=== PATIENT | male | born 1995 | race Caucasian/White ===

== ENCOUNTER 2017-09-01 12:51 | Emergency (ER) | END 2017-09-01 16:22 | disposition home or self-care (01) ==

== ENCOUNTER 2019-01-23 20:21 | Emergency (ER) | payer OTHER ==
[~2019-01-23] VITALS: Ht 172.7 cm; Wt 81.0 kg
[~2019-01-23 20:21] MED LIST: ACET325T33 PO; FAMO-96 PO
[2019-01-23 20:32] VITALS: Ht 172.7 cm; Wt 81.0 kg
[2019-01-23] MEDS ORDERED: SOD CHLORIDE 0.9% 1,000 ML IV STA (22:09)
[2019-01-23] MEDS ORDERED: KETOROLAC 15 MG INJ IV STA (22:09)
[2019-01-24] MEDS ORDERED: SOD CHLORIDE 0.9% 1,000 ML IV ONE (01:30)
[2019-01-24] MEDS ORDERED: IOHEXOL 300MG/ML 150 ML BTL ONE (02:34)
[2019-01-24] MEDS ORDERED: SOD CHLORIDE 0.9% 100 ML ONE (02:34)
[2019-01-24] MEDS ORDERED: IBUP-1542 PO (03:22)
[2019-01-24] MEDS ORDERED: ACET500C5 PO (03:22)
--- NOTE | 2019-01-24 03:34 | ERD ---
ER Documentation Chief Complaint Chief Complaint FLU LIKE S/S-FEVER, COUGH, GEN BODY PAIN ON/OFF [id number] HPI This is a 23-year-old male patient who presents emergency room with complaint of fatigue, weakness, sore throat, fever, chills, diarrhea, decreased appetite x1 month. + Weight loss over the past month. Pain to RUQ and left flank. Denies nausea or vomiting. No IV or illicit drug use. No recent travel, no sick contacts, smokes marijuana. Tachycardia and low-grade fever at triage. ROS All systems reviewed and are negative except as per history of present illness. Medications Home Meds Active Scripts Acetaminophen* (Tylophen*) 500 Mg Capsule, 2 CAP PO Q8H PRN for PAIN AND OR ELEVATED TEMP, #20 CAP Prov:ALEXX LU NP 01/24/19 Ibuprofen* (Motrin*) 600 Mg Tab, 600 MG PO Q6, #30 TAB Prov:ALEXX LU NP 01/24/19 Famotidine* (Pepcid*) 20 Mg Tablet, 20 MG PO BID for 4 Days, TAB Prov:AIRAM GREENWOOD PA-C 09/01/17 Acetaminophen* (Tylenol*) 325 Mg Tablet, 2 TAB PO Q6 PRN for PAIN AND OR ELEVATED TEMP, #20 TAB Prov:AIRAM GREENWOOD PA-C 09/01/17 PMhx/Soc History of Surgery: Yes (appendectomy ) Anesthesia Reaction: No Hx Neurological Disorder: No Hx Respiratory Disorders: No Hx Cardiac Disorders: No Hx Psychiatric Problems: No Hx Miscellaneous Medical Probl: No Hx Alcohol Use: No Hx Substance Use: Yes (MARIJUANA) Hx Tobacco Use: No Smoking Status: Current every day smoker FmHx Family History: No diabetes, No coronary disease, No other Physical Exam Vitals Vital Signs Date Temp Pulse Resp B/P (MAP) Pulse Ox O2 O2 Flow FiO2 Time Delivery Rate 01/23/19 100.3 116 19 139/78 100 20:32 (98) Physical Exam Const: No acute distress Head: Atraumatic Eyes: Normal Conjunctiva ENT: Normal External Ears, Nose and Mouth. Neck: Full range of motion. No meningismus. Resp: Clear to auscultation bilaterally Cardio: Regular rate and rhythm, no murmurs Abd: Soft, non tender, non distended. Normal bowel sounds Skin: No petechiae or rashes Back: No midline or flank tenderness Ext: No cyanosis, or edema Neur: Awake and alert Psych: Normal Mood and Affect Result Diagram: 01/23/19224101/23/192242 Results 24 hrs Laboratory Tests Test 01/23/19 22:42 01/23/19 22:43 01/24/19 01:34 White Blood Count 19.2 10^3/ul Red Blood Count 5.18 10^6/ul Hemoglobin 15.4 g/dl Hematocrit 44.8 % Mean Corpuscular Volume 86.5 fl Mean Corpuscular Hemoglobin 29.7 pg Mean Corpuscular 34.4 g/dl Hemoglobin Concent Red Cell Distribution Width 12.6 % Platelet Count 224 10^3/UL Mean Platelet Volume 10.9 fl Immature Granulocytes % 0.500 % Neutrophils % 77.3 % Lymphocytes % 14.3 % Monocytes % 7.1 % Eosinophils % 0.3 % Basophils % 0.5 % Nucleated Red Blood Cells % 0.0 /100WBC Immature Granulocytes # 0.100 10^3/ul Neutrophils # 14.8 10^3/ul Lymphocytes # 2.8 10^3/ul Monocytes # 1.4 10^3/ul Eosinophils # 0.1 10^3/ul Basophils # 0.1 10^3/ul Nucleated Red Blood Cells # 0.0 10^3/ul Urine Color COLORLESS Urine Clarity CLEAR Urine pH 6.0 Urine Specific [place] 1.004 Urine Ketones NEGATIVE mg/dL Urine Nitrite NEGATIVE mg/dL Urine Bilirubin NEGATIVE mg/dL Urine Urobilinogen NEGATIVE mg/dL Urine Leukocyte Esterase NEGATIVE Cele/ul Urine Microscopic RBC 0 /HPF Urine Microscopic WBC 0 /HPF Urine Hemoglobin 1+ mg/dL Urine Glucose NEGATIVE mg/dL Urine Total Protein NEGATIVE mg/dl Monoscreen Negative HIV (1&2) Antibody NEGATIVE Sodium Level 143 mmol/L Potassium Level 3.9 mmol/L Chloride Level 106 mmol/L Carbon Dioxide Level 25 mmol/L Anion Gap 12 Blood Urea Nitrogen 12 mg/dl Creatinine 0.90 mg/dl Est Glomerular Filtrat > 60 mL/min Rate mL/min Glucose Level 128 mg/dl Calcium Level 9.8 mg/dl Total Bilirubin 0.4 mg/dl Direct Bilirubin 0.00 mg/dl Indirect Bilirubin 0.4 mg/dl Aspartate Amino Transf (AST/SGOT) 31 IU/L Alanine 51 IU/L Aminotransferase (ALT/SGPT) Alkaline Phosphatase 150 IU/L Total Protein 9.0 g/dl Albumin 4.8 g/dl Globulin 4.20 g/dl Albumin/Globulin Ratio 1.14 Lipase 62 U/L Hepatitis B Surface Antigen NEGATIVE Hepatitis B Core Total Antibody NEGATIVE Hepatitis C Antibody NEGATIVE Current Medications Medications Dose Sig/Stephanie Start Time Status Last (Trade) Ordered Route PRN Stop Time Admin Dose Reason Admin Sodium 1,000 ml @ Q1H STAT 01/23/19 DC 01/23/19 Chloride 1,000 mls/hr IV 22:09 22:50 01/23/19 23:08 Ketorolac 15 mg ONCE STAT 01/23/19 DC 01/23/19 Tromethamine IV 22:09 22:50 (Toradol) 01/23/19 22:15 Sodium 1,000 ml @ Q1H ONCE 01/24/19 DC 01/24/19 Chloride 1,000 mls/hr IV 01:30 01:37 01/24/19 02:29 IV Flush 10 ml STK-MED 01/24/19 DC 01/24/19 (NS 10 ml) ONCE .ROUTE 02:34 02:55 01/24/19 02:35 Sodium 100 ml @ ud STK-MED 01/24/19 DC 01/24/19 Chloride ONCE .ROUTE 02:34 02:55 01/24/19 02:35 Iohexol 150 ml STK-MED 01/24/19 DC 01/24/19 (Omnipaque ONCE .ROUTE 02:34 02:55 300mg/ ml) 01/24/19 02:35 Procedures/MDM This is a 23-year-old male patient presents emergency room with complaint of fatigue, weakness, vague abdominal symptoms and fever x1 month. ED COURSE: The patient was stable throughout ED course. I kept the patient and/or family informed of laboratory and diagnostic imaging results throughout the ED course. DIAGNOSTIC IMAGING: Read by radiologist. 1. The wall of the terminal ileum appears prominent and may be thickened and recommend consideration of Crohn disease. Remainder of the gastrointestinal tract is unremarkable. Specifically no CT evidence of appendicitis. 2. Unremarkable gallbladder without biliary ductal dilation. 3. No evidence of calcified urinary calculi or obstructive uropathy. 4. Prominent nonspecific lymph nodes in the right mid mesentery without lymph adenopathy. Consider mesenteric lymphadenitis. 5. No intra-abdominal free fluid abscesses or free air. 6. Unremarkable chest x-ray MEDICATIONS GIVEN: Normal saline, Toradol Patient tolerated medication well with no adverse reactions. Patient reported improvement in pain. MDM: This patient has received an extensive work-up for his symptoms of 1 month of intermittent fever with vague abdominal pain, weakness, sore throat, decreased appetite. Clinical exam and diagnostic work-up are negative at this time for chronic infection such as HIV, hepatitis, mononucleosis. The most likely cause of patient's pain today is mesenteric adenitis as revealed on CT. There are no signs of peritonitis or other life-threatening or serious etiology. Upon reevaluation patient states he feels much improved after Toradol and saline. The patient appears stable for discharge and has been instructed to return immediately if the symptoms worsen in any way, or in 8-12 hours if not improved for re-evaluation. The patient has been instructed to return if the symptoms worsen or change in any way. Patient has been instructed on increasing hydration, use of NSAIDs, and increasing rest. Vital signs normal at discharge. DISPOSITION: The patient has been discharge home to follow-up with community physician. Departure Diagnosis: Primary Impression: Mesenteric lymphadenitis Condition: Stable Patient Instructions: Adenitis, Mesenteric Additional Instructions: Thank you very much for allowing us to participate in your care. Your health and safety is our top priority at [facility]. Call your primary care doctor TOMORROW for an appointment during the next 2-4 days and bring all the information and medications prescribed. Have prescriptions filled and follow precisely the directions on the label. If the symptoms get worse and your provider is unavailable, return to the Emergency Department immediately. Stay well-hydrated, increase hydration to 1 to 2 L of water per day. Use ibuprofen and/or acetaminophen for fever or discomfort. Return to the emergency room with changing or worsening of your symptoms. ALEXX LU NP January 24, 2019 03:34
[2019-01-24 03:36] VITALS: BP 131/81; PULSE 97; RESP 18
== END 2019-01-24 03:38 | disposition home or self-care (01) ==
LOC: FTE 20:21
DX: I88.0 Nonspecific mesenteric lymphadenitis (principal); F17.210 Nicotine dependence, cigarettes, uncomplicated
CPT/HCPCS: 36415; 71046; 74177; 80053; 81001; 83690; 85025; 86308; 86703; 86704; 86709; 86803; 87340; 96361; 96374; J1885; J7030; Q9967; Z7502; Z7610

== ENCOUNTER 2019-05-08 09:27 | Emergency (ER) | payer OTHER ==
[~2019-05-08] VITALS: Ht 165.1 cm; Wt 68.0 kg
[~2019-05-08 09:27] MED LIST changes: +ACET500C5 PO; +ALBU18HF INHALATION; +DOXY100T20 PO; +IBUP-1542 PO; +IBUP800T48 PO
[2019-05-08 09:33] VITALS: Ht 165.1 cm; Wt 68.0 kg
[2019-05-08] MEDS ORDERED: KETOROLAC 15 MG INJ IV STA (09:47)
[2019-05-08] MEDS ORDERED: SOD CHLORIDE 0.9% 1,000 ML IV STA ×2 (09:47→11:55)
[2019-05-08] MEDS ORDERED: ONDANSETRON 4 MG INJ IV STA (09:50)
[2019-05-08] MEDS ORDERED: SOD CHLORIDE 0.9% 100 ML ONE (12:30)
[2019-05-08] MEDS ORDERED: IOHEXOL 100 ML ONE (12:30)
[2019-05-08 13:02] VITALS: BP 124/75; PULSE 105; RESP 15
[2019-05-08] MEDS ORDERED: DOXYCYCLINE 100 MG TAB PO ONE (13:30)
== END 2019-05-08 13:27 | disposition home or self-care (01) ==
LOC: E/R 09:27
DX: J18.9 Pneumonia, unspecified organism (principal)
CPT/HCPCS: 36415; 71045; 71275; 80053; 83690; 84484; 85025; 85378; 85610; 93005; 96361; 96374; 96375; J1885; J2405; J7030; Q9967; Z7502; Z7610